=== PATIENT | male | born 1930 | race Caucasian/White ===

== ENCOUNTER 2017-06-11 20:40 | Emergency (ER) | payer MEDICARE, OTHER | END 2017-06-11 22:00 | disposition home or self-care (01) | LOC: PHED 20:40 | DX: S40.212A Abrasion of left shoulder, initial encounter (principal); S41.012A Laceration without foreign body of left shoulder, initial encounter; W01.0XXA Fall on same level from slipping, tripping and stumbling without subsequent striking against object, initial encounter; Z79.01 Long term (current) use of anticoagulants | CPT/HCPCS: 12002; 70450; 99284-25 ==

== ENCOUNTER 2017-06-12 15:09 | Emergency (ER) | payer MEDICARE, OTHER ==
[~2017-06-12] VITALS: Ht 177.8 cm; Wt 67.3 kg
[2017-06-12 15:20] VITALS: BP 150/69; PULSE 79; RESP 16; TEMP 98.4; O2SAT 99
--- NOTE | 2017-06-12 15:43 | PD ---
HPI . Wound check Chief Complaint: Wound/Suture/Staple Re-Check Time Seen by Provider: 15:34 Travel History International Travel<30 days: No Contact w/Intl Traveler<30days: No Traveled to known affect area: No History of Present Illness HPI This is an 86-year-old man who was seen last night after a simple fall with a resultant skin tear to the left upper arm. He is on anticoagulant and had a CT of his head done last night which was negative. The skin tear was treated with a combination of Dermabond in a flap down and then local wound care over the denuded area of skin. A dressing was applied. The patient's family member reports that they are here today because they are unable to remove the dressing. It is adhered to the wound. They are requesting that we "just admit him for observation." He has no other complaints. PFSH Past Medical History Hx Anticoagulant Therapy: Yes Social History Alcohol Use: Yes (2 drinks, and a bottle of wine a night) Tobacco Use: No Substance Use: No Allergies-Medications (Allergen,Severity, Reaction): Coded Allergies: No Known Allergies (Verified Allergy, Unknown, 06/12/17) Reported Meds & Prescriptions Reported Meds & Active Scripts Active Active Prescriptions or Reported Medications Unobtainable Review of Systems Except as stated in HPI: all other systems reviewed are Neg Physical Exam Narrative GENERAL: Awake and alert and in no acute distress. SKIN: Warm and dry. He has a Coban dressing on the left upper arm which was removed. There is a Tefla dressing which is adherent to the wound. There is some dried blood on the dressing. HEAD: Normocephalic/atraumatic. EYES: Pupils are equal. Extraocular movements are intact. NECK: Normal range of motion. CARDIOVASCULAR: Regular rate and rhythm. RESPIRATORY: Nonlabored respirations. MUSCULOSKELETAL: Atraumatic. NEUROLOGICAL: Nonfocal. PSYCHIATRIC: Appropriate mood and affect. Data Data Last Documented VS Vital Signs Date Time Temp Pulse Resp B/P (MAP) Pulse Ox O2 Delivery O2 Flow Rate FiO2 06/12/17 15:20 98.4 79 16 150/69 (96) 99 Orders Orders Tetanus/Diphtheria Tox Adult (Tetanus/Di (06/12/17 15:45) Change Dressing (06/12/17 15:38) MDM Medical Decision Making Medical Screen Exam Complete: Yes Emergency Medical Condition: Yes Differential Diagnosis My differential diagnosis of a wound check includes but is not limited to normal healing, delayed healing, localized wound infection, cellulitis, sepsis Narrative Course This is an elderly patient presents for an unscheduled follow-up of a skin tear to the left upper extremity. He was brought in by the family because they were unable to remove his dressing because it is adhered to the wound. We just keep him in the hospital. I have explained to him that we cannot do that. The area will be redressed and discharged home with follow-up with primary care provider in about 2 days. Diagnosis Primary Impression: Visit for wound check Patient Instructions: General Instructions, Skin Tear (ED) Additional Instructions: Leave the dressing alone. See his doctor in 2 days for a recheck. Scripts Unable to Obtain Active Prescriptions or Reported Meds Disposition: 01 DISCHARGE HOME Condition: Stable Patricia Foy MD Jun 12, 2017 15:43
[2017-06-12] MEDS ORDERED: TETANUS/DIPHTHERIA TOXOID ADULT 0.5 ML VIAL IM ONE (15:45)
== END 2017-06-12 16:24 | disposition home or self-care (01) ==
LOC: PHEFT 15:09
DX: S41.112D Laceration without foreign body of left upper arm, subsequent encounter (principal); W19.XXXD Unspecified fall, subsequent encounter; Z23 Encounter for immunization; Z79.01 Long term (current) use of anticoagulants; Z48.00 Encounter for change or removal of nonsurgical wound dressing
CPT/HCPCS: 90471; 90714; 99281